=== PATIENT | female | born 1980 | race Two or more races ===

== ENCOUNTER 2019-02-15 21:25 | Emergency (ER) | payer SELFPAY ==
[~2019-02-15] VITALS: Ht 162.6 cm; Wt 55.0 kg
[2019-02-15 21:31] VITALS: BP 92/50
== END 2019-02-16 00:30 | disposition left against medical advice (07) ==
LOC: ER 21:25
DX: R11.2 Nausea with vomiting, unspecified (principal); Z53.21 Procedure and treatment not carried out due to patient leaving prior to being seen by health care provider